=== PATIENT | male | born 1950 | race Caucasian/White ===

== ENCOUNTER 2017-01-19 16:56 | Observation (INO) | payer MEDICARE ==
[2017-01-19] MEDS ORDERED: Acetaminophen TAB* 325 MG PO ONE (17:28)
[2017-01-19] MEDS ORDERED: methylPREDNISolone 125 MG* 2 ML VIAL IV ONE (17:43)
[2017-01-19] MEDS ORDERED: Albuterol/Ipratropium NEB.SOL* Albuterol 2.5 MG/Ipratropium 0.5 MG 3 ML INH ONE (17:44)
[2017-01-19] MEDS ORDERED: Azithromycin IV(*) 500 MG in NS 0.9% 250 ML* 250 ML IVPB ONE (17:45)
[2017-01-19 17:55] LABS: Hematocrit 49 % (42-52); Hemoglobin 16.2 g/dl (14.0-18.0); Mean Corpuscular HGB Conc 33 g/dl (31-36); Mean Corpuscular Hemoglobin 28 pg (27-31); Mean Corpuscular Volume 84 fL (80-94); Mean Platelet Volume 9 um3 (7.4-10.4); Red Blood Count 5.88 10^6/ul (4.0-5.4); Red Cell Distribution Width 14 % (10.5-15); White Blood Count 19.6 10^3/ul (3.5-10.8)
[2017-01-19] MEDS: cefTRIAXone(*) 1 GM in NS 0.9% 50 ML* 50 ML IVPB ONE ×2 (18:04→21:01)
[2017-01-19] MEDS: NS 0.9% 1000 ML* 3,000 ML IV ONE ×2 (18:05→19:54)
[2017-01-19 18:14] LABS: Albumin 4.2 g/dL (3.2-5.2); BUN/Creatinine Ratio 17.6 (8-20); Calcium 9.2 mg/dL (8.6-10.3); EGFR African American 106.9 (>60); EGFR Non-African American 83.1 (>60); Globulin 3.5 g/dL (2-4); Total Bilirubin 0.7 mg/dL (0.2-1.0); Total Protein 7.7 g/dL (6.4-8.9)
[2017-01-19 18:16] LABS: Troponin I 0.01 ng/mL (<0.04)
[2017-01-19 18:24] LABS: C Reactive Protein 21.18 mg/L (< 5.00)
--- NOTE | 2017-01-19 18:36 | RAD ---
Indication: Cough, shortness of breath. Prior films are not available for review. 2 views of the chest including dual energy PA views demonstrates hyperinflated lung malone. No definite alveolar consolidation is noted. No pleural fluid is identified. IMPRESSION: Hyperinflated lung malone without evidence of active cardiopulmonary disease.
--- NOTE | 2017-01-19 19:02 | ED ---
Lisa Beckwith Matthew, scribed for Seymour Rodriguez MD on 01/19/17 at 1750 . Shortness of Breath - HPI Summary HPI Summary: A 66 y/o male presents to the ED with constant, gradually worsening SOB since today. The patient has a Hx of COPD. Associated symptoms include cough, fever - 103.7F, nasal congestion, and intermittent wheezing. The patient denies pedal edema, headache, and vomiting. The patient has not been on Abx, but was Dx with bronchitis a week ago. He was given a 5 day course of prednisone a week ago. The patient is not on home oxygen. His as been recent ill. He took an albuterol treatment at 16:00 with mild relief. The patient has weekly infusion of prolastin for alpha 1 antitrypsin deficiency today in [place]. The patient' s fever began have the infusion today. - History of Current Complaint Chief Complaint: EDShortnessOfBreath Time Seen by Provider: 01/19/17 17:24 Hx Obtained From: Patient Onset/Duration: Gradual Onset, Lasting Hours, Still Present Timing: Constant Current Severity: Moderate Dyspnea At: Rest Associated Signs & Symptoms: Cough (Productive), Wheezing, Fever, Nasal Congestion - Allergy/Home Medications Allergies/Adverse Reactions: Allergies Allergy/AdvReac Type Severity Reaction Status Date / Time No Known Allergies Allergy Verified 09/29/16 07:26 Home Medications: Home Medications Albuterol HFA INHALER* [Ventolin HFA Inhaler*] 2 puff INH Q6H PRN 01/19/17 [ History Confirmed 01/19/17] Aspirin EC Low Dose* [Ecotrin EC Low Dose*] 81 mg PO DAILY 01/19/17 [History Confirmed 01/19/17] Budesonide/Formote 160/4.5(NF) [Symbicort 160/4.5 (NF)] 2 puff INH BID 01/19/17 [History Confirmed 01/19/17] Multivitamins/Minerals TAB* [Theragran/minerals TAB*] 1 tab PO DAILY 01/19/17 [ History Confirmed 01/19/17] Pravastatin (NF) [Pravachol (NF)] 20 mg PO BEDTIME 01/19/17 [History Confirmed 01/19/17] Tiotropium CAP.INH* [Spiriva CAP.INH*] 1 cap.inh INH DAILY 01/19/17 [History Confirmed 01/19/17] predniSONE TAB* [Deltasone TAB*] 20 mg PO DAILY 01/19/17 [History Confirmed ] PMH/Surg Hx/FS Hx/Imm Hx Respiratory History: Reports: Hx Chronic Obstructive Pulmonary Disease (COPD) - Surgical History Surgery Procedure, Year, and Place: CAROTIDENDERECTOMY RIGHT SIDE. SINUS SURGERY - RIGHT EYE Infectious Disease History: No Infectious Disease History: Denies: History Other Infectious Disease, Traveled Outside the [place] in Last 30 Days - Family History Known Family History: Negative: Diabetes - Social History Alcohol Use: None Substance Use Type: Reports: None Smoking Status (MU): Former Smoker Review of Systems Positive: Fever Eyes: Negative Positive: Nasal Discharge Cardiovascular: Negative Respiratory: Other - Intermittent wheezing Positive: Cough Gastrointestinal: Negative Negative: Vomiting Genitourinary: Negative Musculoskeletal: Negative Skin: Negative Neurological: Negative Negative: Headache Psychological: Normal All Other Systems Reviewed And Are Negative: Yes Physical Exam - Summary Physical Exam Summary: The patient is in mild respiratory distress. The skin is warm and dry and skin color reflects adequate perfusion. HEENT: The head is normocephalic and atraumatic. The pupils are equal and reactive. The conjunctivae are clear and without drainage. Nares are patent and without drainage. Mouth reveals moist mucous membranes and the throat is without erythema and exudate. The external ears are intact. The ear canals are patent and without drainage. The tympanic membranes are intact. Neck is supple with full range of motion and non-tender. There are no carotid bruits. There is no neck vein distension. Respiratory: Chest is non-tender. The patient had diminished breath sounds, which is worse on the right. He also had occasional expiratory wheezing and retractions. Cardiovascular: Heart is regular rhythm and tachycardic. There is no murmur or rub auscultated. There is no peripheral edema and pulses are symmetrical and equal. Abdomen: The abdomen is soft and non-tender. There are normal bowel sounds heard in all four quadrants and there is no organomegaly palpated. Musculoskeletal: There is no back pain noted. Extremities are non-tender with full range of motion. There is good capillary refill. There is no peripheral edema or calf tenderness elicited. Neurological: Patient is alert and oriented to person, place and time. The patient has symmetrical motor strength in all four extremities. Cranial nerves are grossly intact. Deep tendon reflexes are symmetrical and equal in all four extremities. Psychiatric: The patient has an appropriate affect and does not exhibit any anxiety or depression. Triage Information Reviewed: Yes Vital Signs On Initial Exam: Initial Vitals Temp Pulse Resp BP Pulse Ox 103.7 F 139 28 183/86 90 01/19/17 16:57 01/19/17 16:57 01/19/17 16:57 01/19/17 16:57 01/19/17 16:57 Vital Signs Reviewed: Yes Diagnostics - Vital Signs Vital Signs Temp Pulse Resp BP Pulse Ox 01/19/17 16:57 103.7 F 139 28 183/86 90 - Laboratory Lab Results: Lab Results 01/19/17 01/19/17 01/19/17 Range/Units 17:40 17:40 17:40 WBC 19.6 H (3.5-10.8) 10^3/ul RBC 5.88 H (4.0-5.4) 10^6/ul Hgb 16.2 (14.0-18.0) g/dl Hct 49 (42-52) % MCV 84 (80-94) fL MCH 28 (27-31) pg MCHC 33 (31-36) g/dl RDW 14 (10.5-15) % Plt Count 211 (150-450) 10^3/ul MPV 9 (7.4-10.4) um3 Neut % (Auto) 92.5 H (38-83) % Lymph % (Auto) 2.8 L (25-47) % [place] % (Auto) 4.2 (1-9) % Eos % (Auto) 0.2 (0-6) % Baso % (Auto) 0.3 (0-2) % Absolute Neuts (auto) 18.1 H (1.5-7.7) 10^3/ul Absolute Lymphs (auto) 0.5 L (1.0-4.8) 10^3/ul Absolute Monos (auto) 0.8 (0-0.8) 10^3/ul Absolute Eos (auto) 0 (0-0.6) 10^3/ul Absolute Basos (auto) 0.1 (0-0.2) 10^3/ul Absolute Nucleated RBC 0 10^3/ul Nucleated RBC % 0 INR (Anticoag Therapy) 1.04 (0.89-1.11) APTT 27.1 (26.0-36.3) seconds Sodium 135 (133-145) mmol/L Potassium 4.0 (3.5-5.0) mmol/L Chloride 99 L (101-111) mmol/L Carbon Dioxide 27 (22-32) mmol/L Anion Gap 9 (2-11) mmol/L BUN 16 (6-24) mg/dL Creatinine 0.91 (0.67-1.17) mg/dL Est GFR ( Amer) 106.9 (>60) Est GFR (Non-Af Amer) 83.1 (>60) BUN/Creatinine Ratio 17.6 (8-20) Glucose 121 H (70-100) mg/dL Lactic Acid (0.5-2.0) mmol/L Calcium 9.2 (8.6-10.3) mg/dL Total Bilirubin 0.70 (0.2-1.0) mg/dL AST 21 (13-39) U/L ALT 10 (7-52) U/L Alkaline Phosphatase 73 (34-104) U/L Troponin I 0.01 (<0.04) ng/mL C-Reactive Protein 21.18 H (< 5.00) mg/L Total Protein 7.7 (6.4-8.9) g/dL Albumin 4.2 (3.2-5.2) g/dL Globulin 3.5 (2-4) g/dL Albumin/Globulin Ratio 1.2 (1-3) Influenza A (Rapid) (Negative) Influenza B (Rapid) (Negative) 01/19/17 01/19/17 Range/Units 17:40 17:52 WBC (3.5-10.8) 10^3/ul RBC (4.0-5.4) 10^6/ul Hgb (14.0-18.0) g/dl Hct (42-52) % MCV (80-94) fL MCH (27-31) pg MCHC (31-36) g/dl RDW (10.5-15) % Plt Count (150-450) 10^3/ul MPV (7.4-10.4) um3 Neut % (Auto) (38-83) % Lymph % (Auto) (25-47) % [place] % (Auto) (1-9) % Eos % (Auto) (0-6) % Baso % (Auto) (0-2) % Absolute Neuts (auto) (1.5-7.7) 10^3/ul Absolute Lymphs (auto) (1.0-4.8) 10^3/ul Absolute Monos (auto) (0-0.8) 10^3/ul Absolute Eos (auto) (0-0.6) 10^3/ul Absolute Basos (auto) (0-0.2) 10^3/ul Absolute Nucleated RBC 10^3/ul Nucleated RBC % INR (Anticoag Therapy) (0.89-1.11) APTT (26.0-36.3) seconds Sodium (133-145) mmol/L Potassium (3.5-5.0) mmol/L Chloride (101-111) mmol/L Carbon Dioxide (22-32) mmol/L Anion Gap (2-11) mmol/L BUN (6-24) mg/dL Creatinine (0.67-1.17) mg/dL Est GFR ( Amer) (>60) Est GFR (Non-Af Amer) (>60) BUN/Creatinine Ratio (8-20) Glucose (70-100) mg/dL Lactic Acid 1.1 (0.5-2.0) mmol/L Calcium (8.6-10.3) mg/dL Total Bilirubin (0.2-1.0) mg/dL AST (13-39) U/L ALT (7-52) U/L Alkaline Phosphatase (34-104) U/L Troponin I (<0.04) ng/mL C-Reactive Protein (< 5.00) mg/L Total Protein (6.4-8.9) g/dL Albumin (3.2-5.2) g/dL Globulin (2-4) g/dL Albumin/Globulin Ratio (1-3) Influenza A (Rapid) Negative (Negative) Influenza B (Rapid) Negative (Negative) Result Diagrams: 01/19/17 17:40 01/19/17 17:40 Lab Statement: Any lab studies that have been ordered have been reviewed, and results considered in the medical decision making process. - Radiology CXR Xray Interpretation: No Acute Changes - IMPRESSION: Hyperinflated lung malone without evidence of active cardiopulmonary disease. Radiology Interpretation Completed By: Radiologist - EKG 17:14 Cardiac Rate: Tachycardia - 133 bpm EKG Rhythm: Atrial Fibrillation EKG Interpretation: RBBB Course/Dx - Course Assessment/Plan: 66 y/o male presents to the ED with constant, gradually worsening SOB since today. Associated symptoms include cough, fever - 103.7F, nasal congestion, and intermittent wheezing. The patient denies pedal edema, headache, and vomiting. The patient has weekly infusion of prolastin for alpha 1 antitrypsin deficiency today in [place]. The patient's fever began have the infusion today. Labs were reviewed. CXR shows no active cardiopulmonary disease. EKG shows sinus tachycardia at 133 bpm w/ a RBBB. In the ED course, the patient was given Tylenol, Albuterol, 3L of fluids, ceftriaxone, Azithromycin, and methylprednisolone. Discussed the case with Dr. Bryson who will admit the patient into his services. - Diagnoses Differential Diagnosis/HQI/PQRI: Positive: Bronchitis, CHF, COPD Exacerbation, [place], Pneumonia, Other - influenza, adverse drug reaction to prolastin Provider Diagnoses: Fever, COPD exacerbation, Acute dyspnea - Physician Notifications Discussed Care of Patient With: Dr. Bryson (Hospitalist) at 18:43 -- Notified of patient's history and will admit the patient into his services. Discharge - Discharge Plan Condition: Stable Disposition: ADMITTED TO [facility] Referrals: Ellie Doty [Primary Care Provider] - The documentation as recorded by the Lisa cuba Matthew accurately reflects the service I personally performed and the decisions made by , Seymour Rodriguez MD.
--- NOTE | 2017-01-19 19:29 | HP ---
H&P (Free Text) History and Physical: PCP: Ny Doty @ [facility] Date/Time of Evaluation: 01/19/2017 1930 CC: fever, SOB HPI: Mr Arechiga is a 66YO male HX COPD & alpha-1 antitrypsin deficiency for which he receives Prolastin infusions at the [facility]. He reports onset of cough ~1month ago associated with malaise which has persisted and gradually worsened. Over the last 24 to 48 hours his SOB has worsened and he developed a fever at home up to 103F. He has a cough with scant sputum production and intermittent wheezing. He denies chest pain, palpitations, abdominal pain, or other issues. Reports influenza & pneumoccocal vacines are up-to-date. Evaluation reveals sinus tachycardia in the 130s, tachypnea in the low 30s, and leukocytosis of 19k 92% neutrophils. CXR is negative. PMedHx alpha-1 antitrypsin deficiency COPD carotid occlusive disease s/p R CEA HLD Allergies No Known Allergies Allergy (Verified 09/29/16 07:26) Ambulatory Orders Alpha 1 Antitrypsin Weekly Infusion 1 infus.set IV .ONCE WEEKLY TH09/29/16 Albuterol HFA INHALER* [Ventolin HFA Inhaler*] 2 puff INH Q6H PRN 01/19/17 Aspirin EC Low Dose* [Ecotrin EC Low Dose*] 81 mg PO DAILY 01/19/17 Budesonide/Formote 160/4.5(NF) [Symbicort 160/4.5 (NF)] 2 puff INH BID 01/19/17 Multivitamins/Minerals TAB* [Theragran/minerals TAB*] 1 tab PO DAILY 01/19/17 Pravastatin (NF) [Pravachol (NF)] 20 mg PO BEDTIME 01/19/17 Tiotropium CAP.INH* [Spiriva CAP.INH*] 1 cap.inh INH DAILY 01/19/17 predniSONE TAB* [Deltasone TAB*] 20 mg PO DAILY 01/19/17 PSurgHx R CEA R sinus surgery x2 for cyst excision SocHx: former smoker quit 9years ago w/ >40PYHX, denies significant alcohol or recreational drug HX; , lives with his ; worked as a search marketing coordinator; full code status FamHx: Father, Brother, & Sister: alpha-1 antitrypsin deficiency ROS: as above, otherwise reviewed and all were negative Constitutional: NAD, normally developed, overweight white male vitals: Vital Signs Temp 39.8 C 01/19/17 16:57 Pulse 136 01/19/17 19:00 Resp 33 01/19/17 19:00 BP 139/68 01/19/17 19:00 Pulse Ox 95 01/19/17 19:00 Intake & Output 01/18/17 01/19/17 01/19/17 23:59 11:59 23:59 Weight 78.018 kg HEENM: atraumatic; sclera/conjunctiva: non-icteric/clear; hearing: clinically intact; oropharynx: clear, mucosa moist Neck: soft tissue: no nuchal rigidity; thyroid: normal Pulmonary: scant end-inspiratory wheeze, marked expiratory > inspiratory time, poor aeration, no accessory muscle use CV: TR/TR, normal S1S2, no jugular venous distention, 2+ B DP/PT, no edema Abdominal: soft, non-distended, non-tender, no rebound/guarding/rigidity, normoactive bowel sounds, no hepatosplenomegaly or masses, no costovertebral angle tenderness Musculoskeletal: general: grossly intact; gait: stable Integumental: normal appearance and texture of exposed skin Psychiatric orientation: AA&O to PPS affect: calm mood: cooperative eye contact: good content: reliable responses: timely insight: fair to good Testing: Lab Results 01/19/17 01/19/17 01/19/17 Range/Units 17:40 17:40 17:40 WBC 19.6 H (3.5-10.8) 10^3/ul RBC 5.88 H (4.0-5.4) 10^6/ul Hgb 16.2 (14.0-18.0) g/dl Hct 49 (42-52) % MCV 84 (80-94) fL MCH 28 (27-31) pg MCHC 33 (31-36) g/dl RDW 14 (10.5-15) % Plt Count 211 (150-450) 10^3/ul MPV 9 (7.4-10.4) um3 Neut % (Auto) 92.5 H (38-83) % Lymph % (Auto) 2.8 L (25-47) % [place] % (Auto) 4.2 (1-9) % Eos % (Auto) 0.2 (0-6) % Baso % (Auto) 0.3 (0-2) % Absolute Neuts (auto) 18.1 H (1.5-7.7) 10^3/ul Absolute Lymphs (auto) 0.5 L (1.0-4.8) 10^3/ul Absolute Monos (auto) 0.8 (0-0.8) 10^3/ul Absolute Eos (auto) 0 (0-0.6) 10^3/ul Absolute Basos (auto) 0.1 (0-0.2) 10^3/ul Absolute Nucleated RBC 0 10^3/ul Nucleated RBC % 0 INR (Anticoag Therapy) 1.04 (0.89-1.11) APTT 27.1 (26.0-36.3) seconds Sodium 135 (133-145) mmol/L Potassium 4.0 (3.5-5.0) mmol/L Chloride 99 L (101-111) mmol/L Carbon Dioxide 27 (22-32) mmol/L Anion Gap 9 (2-11) mmol/L BUN 16 (6-24) mg/dL Creatinine 0.91 (0.67-1.17) mg/dL Est GFR ( Amer) 106.9 (>60) Est GFR (Non-Af Amer) 83.1 (>60) BUN/Creatinine Ratio 17.6 (8-20) Glucose 121 H (70-100) mg/dL Lactic Acid (0.5-2.0) mmol/L Calcium 9.2 (8.6-10.3) mg/dL Total Bilirubin 0.70 (0.2-1.0) mg/dL AST 21 (13-39) U/L ALT 10 (7-52) U/L Alkaline Phosphatase 73 (34-104) U/L Troponin I 0.01 (<0.04) ng/mL C-Reactive Protein 21.18 H (< 5.00) mg/L Total Protein 7.7 (6.4-8.9) g/dL Albumin 4.2 (3.2-5.2) g/dL Globulin 3.5 (2-4) g/dL Albumin/Globulin Ratio 1.2 (1-3) Influenza A (Rapid) (Negative) Influenza B (Rapid) (Negative) 01/19/17 01/19/17 Range/Units 17:40 17:52 WBC (3.5-10.8) 10^3/ul RBC (4.0-5.4) 10^6/ul Hgb (14.0-18.0) g/dl Hct (42-52) % MCV (80-94) fL MCH (27-31) pg MCHC (31-36) g/dl RDW (10.5-15) % Plt Count (150-450) 10^3/ul MPV (7.4-10.4) um3 Neut % (Auto) (38-83) % Lymph % (Auto) (25-47) % [place] % (Auto) (1-9) % Eos % (Auto) (0-6) % Baso % (Auto) (0-2) % Absolute Neuts (auto) (1.5-7.7) 10^3/ul Absolute Lymphs (auto) (1.0-4.8) 10^3/ul Absolute Monos (auto) (0-0.8) 10^3/ul Absolute Eos (auto) (0-0.6) 10^3/ul Absolute Basos (auto) (0-0.2) 10^3/ul Absolute Nucleated RBC 10^3/ul Nucleated RBC % INR (Anticoag Therapy) (0.89-1.11) APTT (26.0-36.3) seconds Sodium (133-145) mmol/L Potassium (3.5-5.0) mmol/L Chloride (101-111) mmol/L Carbon Dioxide (22-32) mmol/L Anion Gap (2-11) mmol/L BUN (6-24) mg/dL Creatinine (0.67-1.17) mg/dL Est GFR ( Amer) (>60) Est GFR (Non-Af Amer) (>60) BUN/Creatinine Ratio (8-20) Glucose (70-100) mg/dL Lactic Acid 1.1 (0.5-2.0) mmol/L Calcium (8.6-10.3) mg/dL Total Bilirubin (0.2-1.0) mg/dL AST (13-39) U/L ALT (7-52) U/L Alkaline Phosphatase (34-104) U/L Troponin I (<0.04) ng/mL C-Reactive Protein (< 5.00) mg/L Total Protein (6.4-8.9) g/dL Albumin (3.2-5.2) g/dL Globulin (2-4) g/dL Albumin/Globulin Ratio (1-3) Influenza A (Rapid) Negative (Negative) Influenza B (Rapid) Negative (Negative) ECG, personally reviewed: sinus tachycardia RBBB rate 130s, no ischemia CXR, personally reviewed: IMPRESSION: Hyperinflated lung malone without evidence of active cardiopulmonary disease. Impression: 66M HX alpha-1 antitrypsin deficiency and COPD presents with COPD exacerbation DIAGNOSIS & PLAN Primary SIRS 2nd COPD exacerbation vs sepsis 2nd unknown source : rapid influenza negative : albuterol nebs : mometasone/formoterol : tiotropium : IV methylprednisolone : IV azithromycin & ceftriaxone : guaifenesin : supplemental oxygen : blood & sputum CXs : supportive care Secondary HLD/carotid occlusive disease : remotely s/p R CEA : low fat diet Admission Rational: inpatient for SIRS 2nd COPD exacerbation DVTp: heparin SQ Code Status: full HCP:
[2017-01-19] MEDS ORDERED: Acetaminophen TAB* 325 MG PO PRN (20:31)
[2017-01-19] MEDS ORDERED: Albuterol 2.5 MG/3 ML NEB.SOL* (0.083%) INH PRN (20:31)
[2017-01-19] MEDS ORDERED: Melatonin (NF) 3 MG TAB PO PRN (20:31)
[2017-01-19] MEDS ORDERED: traMADol TAB* 50 MG PO PRN (20:32)
[2017-01-19] MEDS ORDERED: Ondansetron INJ* 2 MG/ML VIAL IV PRN (20:32)
[2017-01-19] MEDS ORDERED: NS 0.9% 1000 ML* 1,000 ML IV SCH (20:45)
[2017-01-19] MEDS ORDERED: cefTRIAXone VIAL(*) 1,000 MG in NS 0.9% 50 ML* 50 ML IVPB SCH (21:00)
[2017-01-19 21:23] LABS: Urine Bilirubin Negative (Negative); Urine Glucose Negative (Negative); Urine Nitrite Negative (Negative)
[2017-01-19] MEDS: guaiFENesin ER TAB 600 MG PO SCH (22:57)
[2017-01-20] MEDS: Albuterol 2.5 MG/3 ML NEB.SOL* (0.083%) INH SCH ×2 (01:36→07:38)
[2017-01-20] MEDS: Mometasone/Formoter 200/5 MDI INH SCH ×2 (02:09→07:39)
[2017-01-20] MEDS ORDERED: Omeprazole CAP* 20 MG PO SCH (06:00)
[2017-01-20] MEDS ORDERED: Heparin VIAL(*) 5000 UNITS/ML VIAL (FIVE THOUSAND) SUBCUT SCH (06:00)
[2017-01-20 06:25] LABS: Hematocrit 46 % (42-52); Hemoglobin 14.7 g/dl (14.0-18.0); Mean Corpuscular HGB Conc 32 g/dl (31-36); Mean Corpuscular Hemoglobin 28 pg (27-31); Mean Corpuscular Volume 86 fL (80-94); Mean Platelet Volume 9 um3 (7.4-10.4); Red Blood Count 5.34 10^6/ul (4.0-5.4); Red Cell Distribution Width 14 % (10.5-15); White Blood Count 19.8 10^3/ul (3.5-10.8)
[2017-01-20 06:43] LABS: BUN/Creatinine Ratio 18.4 (8-20); Calcium 8.4 mg/dL (8.6-10.3); EGFR African American 112.6 (>60); EGFR Non-African American 87.5 (>60); Potassium 4.4 mmol/L (3.5-5.0)
[2017-01-20] MEDS: guaiFENesin ER TAB 600 MG PO SCH (07:55)
[2017-01-20] MEDS ORDERED: Multivitamins/Minerals TAB PO SCH (09:00)
[2017-01-20] MEDS ORDERED: Aspirin EC Low Dose* 81 MG TAB.EC PO SCH (09:00)
[2017-01-20] MEDS ORDERED: Tiotropium CAP.INH* CAP.INH/18 MCG (USE ORDER SET !) INH SCH (09:00)
[2017-01-20] MEDS ORDERED: Spiriva Inhaler DEVICE* 1 EACH DEVICE INH ONE (09:00)
[2017-01-20] MEDS ORDERED: methylPREDNISolone SOD 40 MG* 1 ML VIAL IV SCH (09:00)
--- NOTE | 2017-01-20 13:17 | DCNOTE ---
Subjective Date of Service: 01/20/17 Interval History: Cough better, near baseline. Overall feels at or near baseline, anxious to go home. No new c/o. Objective Active Medications: Acetaminophen (Tylenol Tab*) 650 mg PO Q6H PRN PRN Reason: FEVER/PAIN Albuterol (Ventolin 2.5 Mg/3 Ml Neb.Tanya*) 2.5 mg INH Q2H PRN PRN Reason: SOB/WHEEZING Albuterol (Ventolin 2.5 Mg/3 Ml Neb.Tanya*) 2.5 mg INH [id number] AWAKE [facility] Last Admin: 01/20/17 07:38 Dose: 2.5 mg Aspirin (Aspirin Ec Low Dose*) 81 mg PO DAILY [facility] Last Admin: 01/20/17 07:55 Dose: 81 mg Guaifenesin (Mucinex*) 1,200 mg PO BID [facility] Last Admin: 01/20/17 07:55 Dose: 1,200 mg Heparin Sodium (Porcine) (Heparin Vial(*)) 5,000 units SUBCUT Q8HR [facility] Last Admin: 01/20/17 05:47 Dose: 5,000 units Ceftriaxone Sodium 1,000 mg/ (Sodium Chloride) 50 mls @ 200 mls/hr IVPB Q24H [facility] Last Admin: 01/19/17 22:55 Dose: 200 mls/hr Azithromycin 500 mg/ Sodium (Chloride) 250 mls @ 250 mls/hr IVPB Q24H [facility] Melatonin (Melatonin (Nf)) 3 mg PO BEDTIME PRN; Protocol PRN Reason: Sleep Methylprednisolone Sodium Succinate (Solu-Medrol*) 40 mg IV Q8H [facility] Last Admin: 01/20/17 07:55 Dose: 40 mg Mometasone Furoate/Formoterol Fumar (Dulera 200/5 Mdi*) 2 puff INH BID [facility] Last Admin: 01/20/17 07:39 Dose: 2 puff Multivitamins/Minerals (Theragran/Minerals Tab*) 1 tab PO DAILY [facility] Last Admin: 01/20/17 07:55 Dose: 1 tab Omeprazole (Prilosec Cap*) 20 mg PO DAILY@0600 [facility] Last Admin: 01/20/17 05:48 Dose: 20 mg Ondansetron HCl (Zofran Inj*) 4 mg IV Q6H PRN PRN Reason: NAUSEA Tiotropium Edgar (Spiriva Cap.Inh*) 1 cap INH DAILY [facility] Last Admin: 01/20/17 07:38 Dose: 1 cap Tramadol HCl (Ultram*) 50 mg PO Q6H PRN PRN Reason: PAIN Vital Signs 01/19/17 01/19/17 01/19/17 20:00 20:30 21:00 Temperature 98.8 F Pulse Rate 133 118 108 Respiratory 24 28 28 Rate Blood Pressure 141/70 129/69 121/57 (mmHg) O2 Sat by Pulse 96 96 95 Oximetry 01/19/17 01/19/17 01/19/17 21:30 22:10 23:00 Temperature 97.8 F Pulse Rate 102 111 Respiratory 27 20 18 Rate Blood Pressure 116/73 156/69 (mmHg) O2 Sat by Pulse 95 95 Oximetry 01/20/17 01/20/17 01/20/17 00:12 02:10 04:14 Temperature 97.9 F 97.3 F Pulse Rate 91 88 Respiratory 16 16 Rate Blood Pressure 138/64 138/73 (mmHg) O2 Sat by Pulse 100 95 100 Oximetry 01/20/17 01/20/17 01/20/17 07:24 07:43 08:00 Temperature 97.7 F Pulse Rate 100 92 Respiratory 20 20 20 Rate Blood Pressure 147/75 (mmHg) O2 Sat by Pulse 99 98 Oximetry 01/20/17 08:17 Temperature Pulse Rate Respiratory Rate Blood Pressure (mmHg) O2 Sat by Pulse 98 Oximetry Oxygen Devices in Use Now: None Appearance: Alert, sitting on the edge of his bed. In good spirits. Looks comfortable. Eyes: No Scleral Icterus Ears/Nose/Mouth/Throat: Clear Oropharnyx, Mucous Membranes Moist Neck: NL Appearance and Movements; NL JVP, No Thyroid Enlargement, Masses Respiratory: Symmetrical Chest Expansion and Respiratory Effort, Clear to Auscultation, Clear to Percussion Cardiovascular: NL Sounds; No Murmurs; No JVD, RRR, No Edema, - Abdominal: NL Sounds; No Tenderness; No Distention, No Hepatosplenomegaly, - Extremities: No Edema, No Clubbing, Cyanosis, - Skin: No Rash or Ulcers, No Nodules or Sclerosis, - Neurological: Alert and Oriented x 3, NL Sensation Result Diagrams: 01/20/17 05:57 01/20/17 05:57 Additional Lab and Data: Lab Results 01/19/17 01/19/17 01/19/17 Range/Units 17:40 17:40 17:40 WBC 19.6 H (3.5-10.8) 10^3/ul RBC 5.88 H (4.0-5.4) 10^6/ul Hgb 16.2 (14.0-18.0) g/dl Hct 49 (42-52) % MCV 84 (80-94) fL MCH 28 (27-31) pg MCHC 33 (31-36) g/dl RDW 14 (10.5-15) % Plt Count 211 (150-450) 10^3/ul MPV 9 (7.4-10.4) um3 Neut % (Auto) 92.5 H (38-83) % Lymph % (Auto) 2.8 L (25-47) % [place] % (Auto) 4.2 (1-9) % Eos % (Auto) 0.2 (0-6) % Baso % (Auto) 0.3 (0-2) % Absolute Neuts (auto) 18.1 H (1.5-7.7) 10^3/ul Absolute Lymphs (auto) 0.5 L (1.0-4.8) 10^3/ul Absolute Monos (auto) 0.8 (0-0.8) 10^3/ul Absolute Eos (auto) 0 (0-0.6) 10^3/ul Absolute Basos (auto) 0.1 (0-0.2) 10^3/ul Absolute Nucleated RBC 0 10^3/ul Nucleated RBC % 0 INR (Anticoag Therapy) 1.04 (0.89-1.11) APTT 27.1 (26.0-36.3) seconds Sodium 135 (133-145) mmol/L Potassium 4.0 (3.5-5.0) mmol/L Chloride 99 L (101-111) mmol/L Carbon Dioxide 27 (22-32) mmol/L Anion Gap 9 (2-11) mmol/L BUN 16 (6-24) mg/dL Creatinine 0.91 (0.67-1.17) mg/dL Est GFR ( Amer) 106.9 (>60) Est GFR (Non-Af Amer) 83.1 (>60) BUN/Creatinine Ratio 17.6 (8-20) Glucose 121 H (70-100) mg/dL Lactic Acid (0.5-2.0) mmol/L Calcium 9.2 (8.6-10.3) mg/dL Total Bilirubin 0.70 (0.2-1.0) mg/dL AST 21 (13-39) U/L ALT 10 (7-52) U/L Alkaline Phosphatase 73 (34-104) U/L Troponin I 0.01 (<0.04) ng/mL C-Reactive Protein 21.18 H (< 5.00) mg/L Total Protein 7.7 (6.4-8.9) g/dL Albumin 4.2 (3.2-5.2) g/dL Globulin 3.5 (2-4) g/dL Albumin/Globulin Ratio 1.2 (1-3) Influenza A (Rapid) (Negative) Influenza B (Rapid) (Negative) 01/19/17 01/19/17 Range/Units 17:40 17:52 WBC (3.5-10.8) 10^3/ul RBC (4.0-5.4) 10^6/ul Hgb (14.0-18.0) g/dl Hct (42-52) % MCV (80-94) fL MCH (27-31) pg MCHC (31-36) g/dl RDW (10.5-15) % Plt Count (150-450) 10^3/ul MPV (7.4-10.4) um3 Neut % (Auto) (38-83) % Lymph % (Auto) (25-47) % [place] % (Auto) (1-9) % Eos % (Auto) (0-6) % Baso % (Auto) (0-2) % Absolute Neuts (auto) (1.5-7.7) 10^3/ul Absolute Lymphs (auto) (1.0-4.8) 10^3/ul Absolute Monos (auto) (0-0.8) 10^3/ul Absolute Eos (auto) (0-0.6) 10^3/ul Absolute Basos (auto) (0-0.2) 10^3/ul Absolute Nucleated RBC 10^3/ul Nucleated RBC % INR (Anticoag Therapy) (0.89-1.11) APTT (26.0-36.3) seconds Sodium (133-145) mmol/L Potassium (3.5-5.0) mmol/L Chloride (101-111) mmol/L Carbon Dioxide (22-32) mmol/L Anion Gap (2-11) mmol/L BUN (6-24) mg/dL Creatinine (0.67-1.17) mg/dL Est GFR ( Amer) (>60) Est GFR (Non-Af Amer) (>60) BUN/Creatinine Ratio (8-20) Glucose (70-100) mg/dL Lactic Acid 1.1 (0.5-2.0) mmol/L Calcium (8.6-10.3) mg/dL Total Bilirubin (0.2-1.0) mg/dL AST (13-39) U/L ALT (7-52) U/L Alkaline Phosphatase (34-104) U/L Troponin I (<0.04) ng/mL C-Reactive Protein (< 5.00) mg/L Total Protein (6.4-8.9) g/dL Albumin (3.2-5.2) g/dL Globulin (2-4) g/dL Albumin/Globulin Ratio (1-3) Influenza A (Rapid) Negative (Negative) Influenza B (Rapid) Negative (Negative) Assess/Plan/Problems-Billing Assessment: - Patient Problems (1) COPD exacerbation Current Visit: Yes Status: Acute Code(s): J44.1 - CHRONIC OBSTRUCTIVE PULMONARY DISEASE W (ACUTE) EXACERBATION SNOMED Code(s): 816361781 Comment: 8 days cefuroxime., 4 days azithromycin as outpt. Prednisone taper , has 10 10 mg tabs at home. (2) Vkafp-[id number] deficiency Current Visit: Yes Status: Acute Code(s): E88.01 - [id number] DEFICIENCY SNOMED Code(s): 24738206 Comment: Continue weekly infusions at home. (3) Carotid stenosis Current Visit: Yes Status: Acute Code(s): I65.29 - OCCLUSION AND STENOSIS OF UNSPECIFIED CAROTID ARTERY SNOMED Code(s): 78120312 Comment: s/p R CEA. Continue pravastatin at home. Status and Disposition: Discharge now. [facility].
[2017-01-20 13:30] VITALS: BP 143/69
[2017-01-20] MEDS ORDERED: Azithromycin IV(*) 500 MG in NS 0.9% 250 ML* 250 ML IVPB SCH (18:00)
--- NOTE | 2017-01-20 21:41 | DS ---
DISCHARGE SUMMARY: DATE OF ADMISSION: DATE OF DISCHARGE: 01/20/17 HISTORY: This 66-year-old man came with complaints of fever and shortness of breath. The history i s detailed in the dictated admission note. Of note, he has alpha-1 antitrypsin deficiency. He has three first-degree family members with the same diagnosis. He gets weekly infusions of alpha-1 anti trypsin at the [facility] in [place]. The patient was admitted and started on ceftriaxone and azithromycin. His temperature was 103.7 the first hospital day, but was below 99 thereafter. He felt much better the following hospital day. His chest x-ray done on admission showed hyperinflated lung malone without evidence of active cardio pulmonary disease. He will complete seven more days of cefuroxime and four more days of azithromycin as an outpatient. FINAL DIAGNOSES: 1. Chronic obstructive pulmonary disease exacerbation. 2. Alpha-1 antitrypsin deficiency. 3. Carotid stenosis, status post endarterectomy. DISCHARGE MEDICATIONS: 1. Prednisone 10 mg daily, taper from 4 to 0 over 4 days. 2. Ceftriaxone 500 mg b.i.d. x8 days. 3. Azithromycin 250 mg daily x4 days. 4. Alpha-1 antitrypsin weekly infusion. 5. Multivitamin with minerals daily. 6. Aspirin 81 mg daily. 7. Tiotropium 1 capsule daily. 8. Pravastatin 20 mg h.s. 9. Budesonide/formoterol 160/4.5 two puffs b.i.d. 10. Albuterol inhaler 2 puffs every 6 hours p.r.n. [id number]/[facility] #: [id number]
== END 2017-01-20 14:02 | disposition home or self-care (01) ==
LOC: ED 16:56 → MEDTELE 19:30 → INTOOBSV 19:30
PROVIDERS: ADMIT Hospitalist; ATTEND Internal Medicine
DX: J44.1 Chronic obstructive pulmonary disease with (acute) exacerbation (principal); E88.01 Alpha-1-antitrypsin deficiency; Z79.82 Long term (current) use of aspirin; Z87.891 Personal history of nicotine dependence; E78.5 Hyperlipidemia, unspecified; I45.10 Unspecified right bundle-branch block; I48.91 Unspecified atrial fibrillation; Z83.49 Family history of other endocrine, nutritional and metabolic diseases
CPT/HCPCS: 36415; 71020; 80048; 80053; 81003; 83605; 84484; 85025; 85610; 85730; 86140; 87040; 87502; 93005; 94640; 94760; 96365; 99285; A9270-GY; G0378; J0456; J0696; J1644; J2920; J2930

== ENCOUNTER 2017-06-17 20:18 | Observation (INO) | payer MEDICARE ==
[2017-06-17] MEDS ORDERED: NS 0.9% 1000 ML* 1,000 ML IV ONE (20:36)
[2017-06-17] MEDS ORDERED: methylPREDNISolone 125 MG* 2 ML VIAL IV ONE (20:36)
[2017-06-17] MEDS ORDERED: Albuterol/Ipratropium NEB.SOL* Albuterol 2.5 MG/Ipratropium 0.5 MG 3 ML INH ONE (20:36)
--- NOTE | 2017-06-17 21:02 | ED ---
Omar Beckwith Benjamin, scribed for Deric Crawford MD on 06/17/17 at 2040 . Shortness of Breath - HPI Summary HPI Summary: 67yo male c/o being increasingly SOB the in the past few days. Pt has hx of COPD and has chronic cough but pt states that his cough has increased in frequency and severity compared to baseline. Pt is not on any oxygen treatment at home. Pt usually have productive cough with white milky phlegm, but states that today has coughed up brown phlegm. Temp of 100F tonight. - History of Current Complaint Chief Complaint: EDShortnessOfBreath Time Seen by Provider: 06/17/17 20:31 Hx Obtained From: Patient, Family/Radioisotope Technologist - Onset/Duration: Gradual Onset, Lasting Days, Still Present, Worse Since - worsening cough and SOB Current Severity: Moderate Dyspnea At: Rest Aggrevating Factors: Nothing Alleviating Factors: Nothing Associated Signs & Symptoms: Cough (Nonproductive) - brown phlegm, Fever - 100F - Allergy/Home Medications Allergies/Adverse Reactions: Allergies Allergy/AdvReac Type Severity Reaction Status Date / Time Pravastatin AdvReac Muscle Ache Verified 06/17/17 21:03 Home Medications: Home Medications Lisinopril [Zestril 5 MG-] 5 mg PO DAILY 06/17/17 [History Confirmed 06/17/17] PMH/Surg Hx/FS Hx/Imm Hx Respiratory History: Reports: Hx Chronic Obstructive Pulmonary Disease (COPD) - Surgical History Surgery Procedure, Year, and Place: CAROTIDENDERECTOMY RIGHT SIDE. SINUS SURGERY - RIGHT EYE Infectious Disease History: Denies: History Other Infectious Disease, Traveled Outside the [place] in Last 30 Days - Family History Known Family History: Positive: Hypertension Negative: Diabetes - Social History Occupation: Retired Lives: With Family Alcohol Use: None Substance Use Type: Reports: None Smoking Status (MU): Former Smoker Review of Systems Positive: Fever - 100F Eyes: Negative ENT: Negative Cardiovascular: Negative Positive: Shortness Of Breath, Cough - with brown phlegm Gastrointestinal: Negative Genitourinary: Negative Musculoskeletal: Negative Skin: Negative Neurological: Negative Psychological: Normal All Other Systems Reviewed And Are Negative: Yes Physical Exam Triage Information Reviewed: Yes Vital Signs On Initial Exam: Initial Vitals Temp Pulse Resp BP Pulse Ox 100 F 125 26 145/65 85 06/17/17 20:21 06/17/17 20:21 06/17/17 20:21 06/17/17 20:21 06/17/17 20:21 Vital Signs Reviewed: Yes Appearance: Positive: No Pain Distress, Ill-Appearing Skin: Positive: Warm Head/Face: Positive: Normal Head/Face Inspection Eyes: Positive: PARISH ENT: Positive: Hearing grossly normal Neck: Positive: Supple, Nontender Respiratory/Lung Sounds: Positive: Decreased Breath Sounds, Wheezes - scattered bilat exp Cardiovascular: Positive: Tachycardia Abdomen Description: Positive: Nontender, Soft Bowel Sounds: Positive: Present Musculoskeletal: Positive: Strength/ROM Intact Neurological: Positive: Alert, Oriented to Person Place, Time Psychiatric: Positive: Affect/Mood Appropriate Diagnostics - Vital Signs Vital Signs Temp Pulse Resp BP Pulse Ox 06/17/17 20:21 100 F 125 26 145/65 85 - Laboratory Result Diagrams: 06/18/17 05:17 06/17/17 21:00 Lab Statement: Any lab studies that have been ordered have been reviewed, and results considered in the medical decision making process. - Radiology CXR Xray Interpretation: No Acute Changes - COPD, NAD. Radiology Interpretation Completed By: Radiologist - EKG 2149. Cardiac Rate: Tachycardia - 113bpm EKG Rhythm: Sinus Tachycardia EKG Interpretation: RBBB Re-Evaluation - Re-Evaluation First Eval Comment: mildly improved, still sig sob, d/w hospitalist Course/Dx - Course Course Of Treatment: Discussed with Dr. Corona (Hospitalist) at 21:57. - Diagnoses Provider Diagnoses: COPD exacerbation - Physician Notifications Instructed by Provider To: Admit As Inpatient Discharge - Discharge Plan Condition: Fair Disposition: ADMITTED TO [facility] documentation as recorded by the Omar cuba Benjamin accurately reflects the service I personally performed and the decisions made by me, Deric Crawford MD.
[2017-06-17 21:12] LABS: Hematocrit 45 % (42-52); Hemoglobin 14.4 g/dl (14.0-18.0); Mean Corpuscular HGB Conc 32 g/dl (31-36); Mean Corpuscular Hemoglobin 28 pg (27-31); Mean Corpuscular Volume 87 fL (80-94); Mean Platelet Volume 9 um3 (7.4-10.4); Red Blood Count 5.19 10^6/ul (4.0-5.4); Red Cell Distribution Width 14 % (10.5-15); White Blood Count 19.6 10^3/ul (3.5-10.8)
[2017-06-17 21:16] LABS: Add Diff/Slide Review? Slide Review Added; Comments Flag Yes
[2017-06-17 21:26] LABS: Albumin 3.8 g/dL (3.2-5.2); BUN/Creatinine Ratio 19.8 (8-20); EGFR African American 106.6 (>60); EGFR Non-African American 82.9 (>60); Globulin 3.4 g/dL (2-4); Potassium 4.3 mmol/L (3.5-5.0); Total Bilirubin 0.7 mg/dL (0.2-1.0); Total Protein 7.2 g/dL (6.4-8.9)
--- NOTE | 2017-06-17 21:39 | RAD ---
INDICATION: Cough and shortness of breath. COMPARISON: Comparison is made with a prior study from January 19, 2017. TECHNIQUE: Dual-energy PA and lateral views of the chest were obtained. FINDINGS: The heart is within normal limits in size. Mediastinal and hilar contours appear within normal limits. There is mild prominence of the interstitial markings which is unchanged from the prior exam. No significant focal infiltrate or pleural effusion is seen. There is flattening of the diaphragms suggestive of chronic obstructive pulmonary disease. IMPRESSION: FINDINGS SUGGESTIVE OF COPD, NO EVIDENCE FOR ACUTE FINDING.
[2017-06-17] MEDS ORDERED: Acetaminophen TAB* 325 MG PO PRN (22:00)
[2017-06-17] MEDS ORDERED: Albuterol 2.5 MG/3 ML NEB.SOL* (0.083%) INH PRN (22:00)
[2017-06-17] MEDS ORDERED: CMCS: Melatonin (NF) 3 MG TAB PO PRN (22:00)
[2017-06-17] MEDS ORDERED: Ondansetron INJ* 2 MG/ML VIAL IV PRN (22:01)
[2017-06-17] MEDS ORDERED: Morphine INJ* 2 MG/ML 1 ML SYRINGE IV PRN (22:01)
--- NOTE | 2017-06-17 22:09 | HP ---
H&P (Free Text) History and Physical: PCP: Ny Doty @ [facility] Date/Time of Evaluation: 06/17/2017 [id number] CC: SOB HPI: Mr Arechiga is a 66YO male HX COPD & alpha-1 antitrypsin deficiency for which he receives Prolastin infusions at the [facility]. He reports 2-3 days of increasing cough and SOB associated with a change in sputum from clear/white to brownish and the addition of subjective F/C and light sweats today. He denies chest pain, N/V, palpitations, or other issues. He was seen at the [facility] ~ 1month ago and diagnosed with a COPD exacerbation successfully managed outpatient. He denies sick contacts. PMedHx alpha-1 antitrypsin deficiency COPD PAOD s/p R carotid endarterectomy HLD Ambulatory Orders Alpha 1 Antitrypsin Weekly Infusion 1 infus.set IV .ONCE WEEKLY 09/29/16 Albuterol HFA INHALER* [Ventolin HFA Inhaler*] 2 puff INH Q6H PRN 01/19/17 Aspirin EC Low Dose* [Ecotrin EC Low Dose 81 MG*] 81 mg PO DAILY 01/19/17 Budesonide/Formote 160/4.5(NF) [Symbicort 160/4.5 (NF)] 2 puff INH BID 01/19/17 Multivitamins/Minerals TAB* [Theragran/minerals TAB*] 1 tab PO DAILY 01/19/17 Tiotropium CAP.INH* [Spiriva CAP.INH*] 1 cap.inh INH DAILY 01/19/17 Lisinopril [Zestril 5 MG-] 5 mg PO DAILY 06/17/17 Allergies Pravastatin Adverse Reaction (Verified 06/17/17 21:03) Muscle Ache PSurgHx R CEA R sinus surgery x2 for cyst excision SocHx: former smoker quit ~9years ago w/ >40PYHX, denies significant alcohol or recreational drug HX; , lives with his ; worked as a staff nurse anesthetist; full code status FamHx: Father, Brother, & Sister: alpha-1 antitrypsin deficiency ROS: as above, otherwise reviewed and all were negative Constitutional: NAD, normally developed, overweight white male vitals: Vital Signs Temp 37.7 C 06/17/17 21:08 Pulse 119 06/17/17 21:08 Resp 25 06/17/17 21:13 BP 169/79 06/17/17 21:08 Pulse Ox 97 06/17/17 21:08 Intake & Output 06/16/17 06/17/17 06/17/17 23:59 11:59 23:59 Weight 72.575 kg HEENM: atraumatic; sclera/conjunctiva: non-icteric/clear; hearing: clinically intact; oropharynx: clear, mucosa moist Neck: soft tissue: no nuchal rigidity; thyroid: normal Pulmonary: mild mid- to end-expiratory wheeze & prolonged expiratory phase, fair aeration, no accessory muscle use CV: TR/TR, normal S1S2, no jugular venous distention, 2+ B DP/PT, no edema Abdominal: soft, non-distended, non-tender, no rebound/guarding/rigidity, normoactive bowel sounds, no hepatosplenomegaly or masses, no costovertebral angle tenderness Musculoskeletal: general: grossly intact; gait: stable Integumental: normal appearance and texture of exposed skin Psychiatric orientation: AA&O to PPS affect: calm mood: pleasant eye contact: good content: reliable responses: timely insight: fair to good Testing: Lab Results 06/17/17 06/17/17 06/17/17 Range/Units 21:00 21:00 21:00 WBC 19.6 H (3.5-10.8) 10^3/ul RBC 5.19 (4.0-5.4) 10^6/ul Hgb 14.4 (14.0-18.0) g/dl Hct 45 (42-52) % MCV 87 (80-94) fL MCH 28 (27-31) pg MCHC 32 (31-36) g/dl RDW 14 (10.5-15) % Plt Count 251 (150-450) 10^3/ul MPV 9 (7.4-10.4) um3 Neut % (Auto) 87.7 H (38-83) % Lymph % (Auto) 3.7 L (25-47) % [place] % (Auto) 7.7 (1-9) % Eos % (Auto) 0.1 (0-6) % Baso % (Auto) 0.8 (0-2) % Absolute Neuts (auto) 17.2 H (1.5-7.7) 10^3/ul Absolute Lymphs (auto) 0.7 L (1.0-4.8) 10^3/ul Absolute Monos (auto) 1.5 H (0-0.8) 10^3/ul Absolute Eos (auto) 0 (0-0.6) 10^3/ul Absolute Basos (auto) 0.2 (0-0.2) 10^3/ul Absolute Nucleated RBC 0.02 10^3/ul Nucleated RBC % 0.1 Sodium 134 (133-145) mmol/L Potassium 4.3 (3.5-5.0) mmol/L Chloride 98 L (101-111) mmol/L Carbon Dioxide 27 (22-32) mmol/L Anion Gap 9 (2-11) mmol/L BUN 18 (6-24) mg/dL Creatinine 0.91 (0.67-1.17) mg/dL Est GFR ( Amer) 106.6 (>60) Est GFR (Non-Af Amer) 82.9 (>60) BUN/Creatinine Ratio 19.8 (8-20) Glucose 122 H (70-100) mg/dL Lactic Acid 1.0 (0.5-2.0) mmol/L Calcium 9.0 (8.6-10.3) mg/dL Total Bilirubin 0.70 (0.2-1.0) mg/dL AST 15 (13-39) U/L ALT 6 L (7-52) U/L Alkaline Phosphatase 90 (34-104) U/L Total Protein 7.2 (6.4-8.9) g/dL Albumin 3.8 (3.2-5.2) g/dL Globulin 3.4 (2-4) g/dL Albumin/Globulin Ratio 1.1 (1-3) ECG, personally reviewed: sinus RBBB rate 103, no ischemia CXR, personally reviewed: sinus RBBB rate 113, no ischemia Impression: 66M HX alpha-1 antitrypsin deficiency & COPD presents w/ COPD exacerbation DIAGNOSIS & PLAN Primary SIRS 2nd COPD exacerbation : albuterol nebs : mometasone/formoterol : tiotropium : IV methylprednisolone : IV azithromycin & ceftriaxone : guaifenesin : blood & sputum CXs : incentive spirometry : supplemental oxygen : supportive care elevated troponin, suspect demand ischemia : telemetry, troponin : aspirin Secondary HLD/PAOD : remotely s/p R CEA : heart healthy diet Admission Rational: inpatient for SIRS 2nd COPD exacerbation & elevated troponin DVTp: heparin SQ Code Status: full HCP:
[2017-06-17] MEDS ORDERED: NS 0.9% 1000 ML* 1,000 ML IV SCH (22:15)
[2017-06-17 22:38] LABS: Troponin I 0.04 ng/mL (<0.04)
[2017-06-18] MEDS ORDERED: cefTRIAXone VIAL(*) 1,000 MG in NS 0.9% 50 ML* 50 ML IVPB SCH (00:15)
[2017-06-18] MEDS ORDERED: Azithromycin IV(*) 500 MG in NS 0.9% 250 ML* 250 ML IVPB SCH (00:30)
[2017-06-18] MEDS: Albuterol 2.5 MG/3 ML NEB.SOL* (0.083%) INH SCH ×2 (00:31→09:08)
[2017-06-18] MEDS ORDERED: methylPREDNISolone SOD 40 MG* 1 ML VIAL IV SCH (04:00)
[2017-06-18 05:31] LABS: Hematocrit 43 % (42-52); Hemoglobin 13.7 g/dl (14.0-18.0); Mean Corpuscular HGB Conc 32 g/dl (31-36); Mean Corpuscular Hemoglobin 28 pg (27-31); Mean Corpuscular Volume 88 fL (80-94); Mean Platelet Volume 9 um3 (7.4-10.4); Red Blood Count 4.87 10^6/ul (4.0-5.4); Red Cell Distribution Width 14 % (10.5-15); White Blood Count 12.7 10^3/ul (3.5-10.8)
[2017-06-18] MEDS ORDERED: Heparin VIAL(*) 5000 UNITS/ML VIAL (FIVE THOUSAND) SUBCUT SCH (06:00)
[2017-06-18] MEDS ORDERED: Omeprazole CAP* 20 MG PO SCH (06:00)
[2017-06-18 08:19] VITALS: BP 137/67
[2017-06-18] MEDS ORDERED: Docusate CAP* 100 MG PO SCH (09:00)
[2017-06-18] MEDS ORDERED: Aspirin EC Low Dose* 81 MG TAB.EC PO SCH (09:00)
[2017-06-18] MEDS ORDERED: Spiriva Inhaler DEVICE* 1 EACH DEVICE INH ONE (09:00)
[2017-06-18] MEDS ORDERED: guaiFENesin ER TAB 600 MG PO SCH (09:00)
[2017-06-18] MEDS ORDERED: Tiotropium CAP.INH* CAP.INH/18 MCG INH SCH (09:00)
[2017-06-18] MEDS ORDERED: Mometasone/Formoter 200/5 MDI INH SCH (09:00)
--- NOTE | 2017-06-19 07:02 | DS ---
DISCHARGE SUMMARY: DATE OF ADMISSION: 06/17/17 DATE OF DISCHARGE: 06/18/17 HISTORY: This 67-year-old man presented with COPD exacerbation, he had had increased cough with yellow sputum for about a day. He was little more short of breath. I noted he has alpha-1 antitrypsin deficiency and gets antitrypsin infusions every week at the [facility]. He does not use home oxygen. He has been rather stable, other than these occasional exacerbations. His came with him and was present when I discharged the patient, she has not been ill. The patient received ceftriaxone, methylprednisolone, and azithromycin. He was much better the next day, pretty much at his baseline. He had a small amount of sputum, which was stewarding supervisor in color. He had a little bit of chest pain with coughing. He had had no chills or sweats. Of note, his temperature was exactly 100 the first three measurements and was under 98 the last three measurements in the hospital. His white count was 19.6 and came down to 12.7 the next day. This was similar to his white count when he had an exacerbation in December of this year. He has had a number of exacerbations, some treated as an outpatient. The patient's pulmonary exam was essentially negative on the day of discharge. He was breathing comfortably on room air and, by his own account, was pretty much at his baseline. FINAL DIAGNOSES: 1. Chronic obstructive pulmonary disease exacerbation. 2. Alpha-1 antitrypsin disease. 3. Peripheral arterial disease, status post carotid endarterectomy. 4. Hyperlipidemia. DISCHARGE MEDICATIONS: 1. Azithromycin 250 mg daily for 4 days. 2. Cefuroxime 500 mg b.i.d. for 7 days. 3. Prednisone 10 mg, to taper from 60 over 6 days. 4. Alpha-1 antitrypsin infusion weekly. 5. Multivitamin with minerals daily. 6. Enteric-coated aspirin 81 mg daily. 7. Tiotropium 1 capsule daily. 8. Budesonide/formoterol 160/4.5 two puffs b.i.d. 9. Albuterol inhaler 2 puffs every 6 hours p.r.n. 10. Lisinopril 5 mg daily. [id number]/[facility] #: [id number] [facility]
[2017-06-19] MEDS ORDERED: Azithromycin TAB* 250 MG PO SCH (09:00)
== END 2017-06-18 11:59 | disposition home or self-care (01) ==
LOC: ED 20:18 → MED 21:55 → INTOOBSV 21:55 → UNDOADMIN 21:55 → MEDTELE 06-18 00:03
PROVIDERS: ADMIT Hospitalist; ATTEND Internal Medicine
DX: J44.9 Chronic obstructive pulmonary disease, unspecified (principal); E88.01 Alpha-1-antitrypsin deficiency; I73.9 Peripheral vascular disease, unspecified
CPT/HCPCS: 36415; 71020; 80053; 83605; 84484; 85025; 87070; 87205; 93005; 94640; 94760; 96374; 99283; A9270-GY; G0378; J0456; J0696; J1644; J2920; J2930

== ENCOUNTER 2018-06-25 12:36 | Emergency (ER) | payer MEDICARE ==
--- NOTE | 2018-06-25 12:56 | ED ---
Shortness of Breath - HPI Summary HPI Summary: This is rosa elena Watters documenting for attending Rm Worley MD. Patient is a 68 y/o M w/ c/o SOB since this morning. Patient has Hx of COPD but notes exacerbation of SOB this morning. He reports nausea, vomiting this morning and having a productive cough which brings up clear mucous. He denies chest pain but reports ROSA and slight neck stiffness. Patient reports chills yesterday and possible fever today. He is on 3 L O2 at home. On triage, pain is denied but it is also noted that exertion and lying flat worsens SOB. Nothing is noted to alleviate Sx on triage. Allergies and home medications are reviewed. - History of Current Complaint Chief Complaint: EDShortnessOfBreath Hx Obtained From: Patient Onset/Duration: Sudden Onset, Lasting Hours - onset this morning, does not specify time Current Severity: None - pain denied on triage Aggrevating Factors: Movement, Other - lying flat Alleviating Factors: Nothing Associated Signs & Symptoms: Cough (Productive) - clear mucous, Fever, Chills - Allergy/Home Medications Allergies/Adverse Reactions: Allergies Allergy/AdvReac Type Severity Reaction Status Date / Time pravastatin Allergy Muscle Ache Verified 06/25/18 16:28 Home Medications: Home Medications [id number] Inhibitor [Prolastin C] 1,000 mg IV WEEKLY 06/25/18 [History Confirmed 06/25/18] Lisinopril TAB* [Prinivil TAB 5 MG*] 5 mg PO DAILY 06/25/18 [History Confirmed 06/25/18] Lovastatin (NF) [Mevacor (NF)] 10 mg PO DAILY 06/25/18 [History Confirmed ] PMH/Surg Hx/FS Hx/Imm Hx Cardiovascular History: Reports: Other Cardiovascular Problems/Disorders - carotid stenosis, endarectomy 2006 Respiratory History: Reports: Hx Chronic Obstructive Pulmonary Disease (COPD) Sensory History: Reports: Hx Contacts or Glasses - reading glasses but at home, Hx Vision Problem - reading only, Hx Hearing Aid - bilateral hearing aid Opthamlomology History: Reports: Hx Contacts or Glasses - reading glasses but at home, Hx Vision Problem - reading only - Surgical History Surgery Procedure, Year, and Place: CAROTIDENDERECTOMY RIGHT SIDE. SINUS SURGERY - RIGHT EYE Infectious Disease History: No Infectious Disease History: Denies: History Other Infectious Disease, Traveled Outside the [place] in Last 30 Days - Family History Known Family History: Positive: Hypertension Negative: Diabetes - Social History Alcohol Use: None Substance Use Type: Reports: None Smoking Status (MU): Former Smoker Review of Systems Positive: Fever, Chills Negative: Chest Pain Positive: Shortness Of Breath, Cough - productive, white mucous Positive: Vomiting, Nausea Positive: Other - neck stiffness Positive: Headache All Other Systems Reviewed And Are Negative: Yes Physical Exam - Summary Physical Exam Summary: VITAL SIGNS: Reviewed. GENERAL: Patient is a well-developed and nourished male who is lying comfortable in the stretcher. Patient is not in any acute respiratory distress. HEAD AND FACE: No signs of trauma. No ecchymosis, hematomas or skull depressions. No sinus tenderness. EYES: PERRLA, EOMI x 2, No injected conjunctiva, no nystagmus. EARS: Hearing grossly intact. Ear canals and tympanic membranes are within normal limits. MOUTH: Oropharynx within normal limits. NECK: Supple, trachea is midline, no adenopathy, no JVD, no carotid bruit, no c- spine tenderness, neck with full ROM. CHEST: Symmetric, no tenderness at palpation LUNGS: Decreased breath sounds bilaterally, little movement of air. No wheezing or crackles. CVS: Regular rate and rhythm, S1 and S2 present, no murmurs or gallops appreciated. ABDOMEN: Soft, non-tender. No signs of distention. No rebound no guarding, and no masses palpated. Bowel sounds are normal. EXTREMITIES: FROM in all major joints, no edema, no cyanosis or clubbing. NEURO: Alert and oriented x 3. No acute neurological deficits. Speech is normal and follows commands. SKIN: Dry and warm Triage Information Reviewed: Yes Vital Signs On Initial Exam: Initial Vitals Temp Pulse Resp BP Pulse Ox 98.3 F 119 28 149/61 95 06/25/18 12:39 06/25/18 12:39 06/25/18 12:39 06/25/18 12:39 06/25/18 12:39 Vital Signs Reviewed: Yes Diagnostics - Vital Signs Vital Signs Temp Pulse Resp BP Pulse Ox 06/25/18 12:39 98.3 F 119 28 149/61 95 - Laboratory Result Diagrams: 06/25/18 13:09 06/25/18 13:09 Lab Statement: Any lab studies that have been ordered have been reviewed, and results considered in the medical decision making process. - Radiology CXR Xray Interpretation: No Acute Changes Radiology Interpretation Completed By: Radiologist - No evidence for cardiopulmonary disease. This report was reviewed by ED physician. - CT CTA Thorax/Chest CT Interpretation: No Acute Changes CT Interpretation Completed By: Radiologist - No evidence of pulmonary embolus is noted. Small mediastinal lymph nodes are noted. Minimal atelectas is in the right lung base. This report was reviewed by ED physician. - EKG 1637 Cardiac Rate: Tachycardia - Rate of 110 BPM EKG Rhythm: Sinus Tachycardia ST Segment: Normal - No ST elevation EKG Interpretation: RBBB Re-Evaluation - Re-Evaluation First Eval Re-Evaluation Time: 15:40 Comment: Discussed results of labs and tests. Follow up plan of discharge and visit with PCP within 3 days was discussed. Patient was agreeable with the plan. Course/Dx - Course Assessment/Plan: Patient is a 68 y/o M w/ c/o SOB since this morning. Patient has Hx of COPD but notes exacerbation of SOB this morning. He reports nausea, vomiting this morning and having a productive cough which brings up clear mucus. He denies chest pain but reports ROSA and neck stiffness. Patient reports chills yesterday and possible fever today. He is on 3 L O2 at home. On triage, pain is denied. Allergies and home medications are reviewed. Blood test results without any significant abnormality except for WBCs of 14.1. ABG shows pH of 7.41, PCO2 48, PO2 0101, O2 sat is 99% and 2 L of oxygen. Chest x-ray impression: No evidence for active cardiopulmonary disease. D-dimer was elevated therefore I decided to do a chest CTA. CTA impression: No evidence of pulmonary embolism. After medications the patients symptoms havent significantly improved. The patient reports that he is at baseline. However because the COPD exacerbation I decided to place the patient and antibiotics and discharge the patient home with follow-up with primary care physician. I discussed the plan with the patient and he agrees. I discussed all the findings and test results with the patient. Patient was instructed to return to the emergency room immediately if any of the symptoms return or worsens. Plan of care was discussed with the patient and understands and agrees. All questions were answered at patient satisfaction. There were no further complaints or concerns. Lung exam before discharge: CTA B/L. Good air exchange. No wheezing or crackles heard. CVS: S1 and S2 present. No murmurs appreciated. Patient is alert and oriented x 3. Patient is hemodynamically stable. Patient will be discharged home with follow up PCP in the next 2-3 days - Diagnoses Differential Diagnosis/HQI/PQRI: Positive: Asthma, Bronchitis, CHF, COPD Exacerbation, Pneumonia, Pulmonary Embolism Provider Diagnoses: COPD exacerbation, Bronchitis Discharge - Sign-Out/Discharge Documenting (check all that apply): Patient Departure - discharge - Discharge Plan Condition: Stable Disposition: HOME Prescriptions: Levofloxacin TAB* [Levaquin TAB*] 750 mg PO DAILY #10 tab predniSONE TAB* [Deltasone 20 MG TAB*] 40 mg PO DAILY #10 tab Patient Education Materials: COPD (Chronic Obstructive Pulmonary Disease) (ED) , Pneumonia (ED) Referrals: Ellie Doty [Primary Care Provider] - 3 Days Additional Instructions: Return to ED for any new or worsening symptoms.
[2018-06-25] MEDS ORDERED: NS 0.9% 1000 ML*IV.FLUID IV ONE (12:57)
[2018-06-25] MEDS ORDERED: Albuterol/Ipratropium NEB.SOL* Albuterol 2.5 MG/Ipratropium 0.5 MG 3 ML INH PRN (12:57)
[2018-06-25] MEDS ORDERED: methylPREDNISolone 125 MG* 2 ML VIAL IV ONE (13:00)
[2018-06-25] MEDS ORDERED: cefTRIAXone(*) 1 GM in NS 0.9% 50 ML* 50 ML IVPB ONE (13:00)
[2018-06-25 13:17] LABS: Hematocrit 44 % (42-52); Hemoglobin 14.3 g/dl (14.0-18.0); Mean Corpuscular HGB Conc 33 g/dl (31-36); Mean Corpuscular Hemoglobin 28 pg (27-31); Mean Corpuscular Volume 86 fL (80-94); Mean Platelet Volume 8.9 um3 (7.4-10.4); Platelet Count 194 10^3/ul (150-450); Red Cell Distribution Width 14 % (10.5-15); White Blood Count 14.1 10^3/ul (3.5-10.8)
--- NOTE | 2018-06-25 13:33 | RAD ---
INDICATION: Shortness of breath. COMPARISON: Comparison is made with a prior study from June 17, 2017. TECHNIQUE: Dual-energy PA and lateral views of the chest were obtained. FINDINGS: The heart is within normal limits in size. Mediastinal and hilar contours appear within normal limits. The lungs are underinflated. There appears to be mild bilateral subsegmental atelectasis. The lungs are otherwise clear. No pleural effusion is seen. IMPRESSION: NO EVIDENCE FOR ACTIVE CARDIOPULMONARY DISEASE.
[2018-06-25 13:38] LABS: EGFR Non-African American 81.6 (>60)
[2018-06-25 14:35] LABS: ABS Basophils 0 10^3/ul (0-0.2); ABS Neutrophils 13.9 10^3/ul (1.5-7.7); ABS Neutrophils 9.9 10^3/ul (1.5-7.7); Monocytes % 0 % (0-7)
[2018-06-25 14:48] LABS: INR 0.95 (0.77-1.02)
[2018-06-25] MEDS ORDERED: Iohexol 350* (CONTRAST) 500 ML MDV IV ONE (16:19)
--- NOTE | 2018-06-25 17:13 | RAD ---
Indication: Elevated d-dimer. Contrast: Administered 71.4 ml of OMNIPAQUE 350 mg/ml CTA of the chest performed after IV contrast administration. Coronal and sagittal reconstructed images were obtained. Pulmonary arterial tree is well opacified. There are no filling defects present to suggest pulmonary embolus. Inferior thyroid lobes are unremarkable. There is a pretracheal lymph node measuring up to 5 mm. AP window lymph node measuring up to 5.6 mm. Precarinal lymph node measuring up to 8 mm is noted. No hilar adenopathy is noted. The heart demonstrates no pericardial effusion. The trachea and major bronchi appear patent. Lung malone demonstrate atelectasis in the right base. No alveolar consolidation is noted. The visualized abdominal organs are grossly unremarkable. Atherosclerotic aorta is noted. Degenerative changes of the lower thoracic spine is noted. IMPRESSION: No evidence of pulmonary embolus is noted. Small mediastinal lymph nodes are noted. Minimal atelectasis in the right lung base.
[2018-06-25 17:33] VITALS: BP 118/56
--- NOTE | 2018-06-26 16:54 | PN ---
Progress Note - Progress Note Date of Service: 06/25/18 Note: Call patient's at 9 AM to make aware of positive blood cultures Patient states he feels much better and is denying any symptoms currently Denies any fevers, sweats, chills or weakness Was placed on Levaquin at discharge [facility] Strict return precautions given as discussed gram-negative bacilli often treated with IV antibiotics However, Levaquin may be effective at this time as patient denies any concerns or complaints He understands return precautions and [facility] if not [facility] ED before hand
== END 2018-06-25 17:48 | disposition home or self-care (01) ==
LOC: ED 12:36
DX: J44.1 Chronic obstructive pulmonary disease with (acute) exacerbation (principal); J98.11 Atelectasis; I45.10 Unspecified right bundle-branch block; R00.0 Tachycardia, unspecified; Z99.81 Dependence on supplemental oxygen; Z87.891 Personal history of nicotine dependence; Z88.8 Allergy status to other drugs, medicaments and biological substances
CPT/HCPCS: 36415; 71046; 71275; 80053; 82550; 82803; 83605; 83880; 84145; 84484; 85025; 85379; 85384; 85610; 85652; 85730; 86140; 87040; 87077; 87205; 93005; 96361; 96374; 99284; A9270-GY; J0696; J2930; Q9967

== ENCOUNTER 2024-09-05 15:40 | Inpatient (IN) ==
[2024-09-05] MEDS: Albuterol 2.5mg/3 ml (0.083%) NEB.SOLN INH SCH (15:50)
[2024-09-05 15:57] LABS: ABS Eosinophils 0.4 10^3/uL (0.0-0.5); ABS Lymphocytes 3.4 10^3/uL (1.0-4.8); ABS Monocytes 0.9 10^3/uL (0.0-1.1); ABS Neutrophils 7.1 10^3/uL (1.5-7.6); Eosinophil % 3.2 %; Hematocrit 31.3 % (38-53); Hemoglobin 9.9 g/dL (13.2-16.3); Lymphocyte % 28.9 %; Mean Corpuscular Hemoglobin 28.5 pg (27-33); Mean Corpuscular Hgb Conc 31.7 g/dL (31-36); Mean Corpuscular Volume 89.9 fL (80-97); Mean Platelet Volume 10.1 fL (7.5-11.2); Platelet Count 260 10^3/uL (150-450); Red Blood Count 3.48 10^6/uL (4.06-5.63); Red Cell Distribution Width 14.5 % (12-17); White Blood Count 11.8 10^3/uL (3.6-10.2)
[2024-09-05] MEDS: Albuterol/Ipratropium NEB.SOL (2.5/0.5 MG) 3 ML NEB.SOLN INH ONE (16:00)
[2024-09-05] MEDS: methylPREDNISolone SOD SUCC 125 mg 2 ML VIAL IV ONE (16:01)
[2024-09-05 16:20] LABS: PO2 Arterial 142 mmHg (80-100)
[2024-09-05 16:22] LABS: PCO2 Arterial > 100 mmHg (35-45)
[2024-09-05 16:23] LABS: High Sens Troponin Baseline 19 pg/mL (<20)
[2024-09-05 16:44] LABS: ALT 15 U/L (7-52); AST 45 U/L (13-39); Albumin 4.1 g/dL (3.2-5.2); Albumin/Globulin Ratio 1.4 (1-3); Alkaline Phosphatase 108 U/L (35-149); Anion Gap 5 mmol/L (2-16); Blood Urea Nitrogen 21 mg/dL (6-24); C Reactive Protein 1.37 mg/L (<8.01); CO2 Carbon Dioxide 43 mmol/L (22-32); Calcium 9.2 mg/dL (8.6-10.3); Chloride 95 mmol/L (101-111); Creatinine, Serum 1.35 mg/dL (0.67-1.17); Globulin 2.9 g/dL (2-4); Glucose 234 mg/dL (70-100); Potassium 4.1 mmol/L (3.5-5.0); Sodium 143 mmol/L (135-145); Total Bilirubin 0.5 mg/dL (0.2-1.0); eGFR CKD-EPI 54.8 (>60)
[2024-09-05 16:50] LABS: Activated Partial Thrombo Time 30.2 seconds (26.0-38.0); INR 0.96 (0.85-1.14)
[2024-09-05 17:19] LABS: High Sensitivity Troponin 1 Hr 27 pg/mL (<20)
[2024-09-05] MEDS ORDERED: Albuterol HFA INHALER 8 gm MDI INH PRN (20:20)
[2024-09-05 22:36] LABS: High Sensitivity Troponin 1 Hr 412 pg/mL (<20)
[2024-09-06 04:35] LABS: ABS Lymphocytes 0.2 10^3/uL (1.0-4.8); ABS Monocytes 0.2 10^3/uL (0.0-1.1); ABS Neutrophils 5.8 10^3/uL (1.5-7.6); Hemoglobin 8.4 g/dL (13.2-16.3); Lymphocyte % 3.5 %; Mean Corpuscular Hemoglobin 28.4 pg (27-33); Mean Corpuscular Hgb Conc 32.2 g/dL (31-36); Mean Corpuscular Volume 88.2 fL (80-97); Mean Platelet Volume 10.2 fL (7.5-11.2); Platelet Count 162 10^3/uL (150-450); Red Blood Count 2.95 10^6/uL (4.06-5.63); Red Cell Distribution Width 14.5 % (12-17); White Blood Count 6.2 10^3/uL (3.6-10.2)
[2024-09-06 05:23] LABS: Calcium 9.1 mg/dL (8.6-10.3); Creatinine, Serum 1.45 mg/dL (0.67-1.17); Magnesium 2.1 mg/dL (1.9-2.7); Potassium 4.8 mmol/L (3.5-5.0); eGFR CKD-EPI 50.3 (>60)
[2024-09-06 05:51] LABS: % Iron Saturation 18 % (15-55); .Transferrin 259 mg/dL (203-362); Iron 67 ug/dL (50-212); Total Iron Binding Capacity 363 mcg/dL (250-450); Unsaturated Iron Binding 296 ug/dL
[2024-09-06] MEDS ORDERED: Heparin 5000 UNITS/ML 1 mL VIAL IV SCH (06:00)
[2024-09-06] MEDS ORDERED: Iodixanol 320 (CONTRAST) 100 ML SDV IV ONE (06:11)
[2024-09-06 06:14] LABS: Ferritin 50.6 ng/mL (24-336)
[2024-09-06 06:18] LABS: Folate > 20.00 ng/mL (5.90-24.80); Vitamin B12 598 pg/mL (180-914)
[2024-09-06 08:11] LABS: Hematocrit 24.2 % (38-53); Hemoglobin 7.8 g/dL (13.2-16.3)
[2024-09-06] MEDS: Tiotropium Brom/Olodaterol MDI (ACUTE) INH SCH (08:14)
[2024-09-06] MEDS: Heparin DRIP 25,000 UNITS BAG 25,000 UNITS/250 ML BAG IV SCH (08:53)
[2024-09-06] MEDS ORDERED: Olodaterol Inhaler MDI INH SCH (09:00)
[2024-09-06 09:26] LABS: High Sensitivity Troponin 1 Hr 696 pg/mL (<20)
[2024-09-06] MEDS: Lactated Ringers 1000 ml BAG 1,000 ML IV ONE ×2 (09:38→22:01)
[2024-09-06] MEDS: Aspirin EC 81 mg TAB.EC (enteric coated) PO SCH (09:51)
[2024-09-06] MEDS: Sulfur Hexaflouride MICROSPHR 25 MG VIAL IV PRN (10:20)
[2024-09-06 10:42] LABS: PCO2 Arterial 65 mmHg (35-45); PO2 Arterial 93 mmHg (80-100)
[2024-09-06] MEDS: Multivitamins/Minerals TAB PO SCH (11:58)
[2024-09-06 14:25] LABS: ABS Lymphocytes 0.5 10^3/uL (1.0-4.8); ABS Monocytes 0.8 10^3/uL (0.0-1.1); ABS Neutrophils 10.4 10^3/uL (1.5-7.6); Hematocrit 24.5 % (38-53); Hemoglobin 7.9 g/dL (13.2-16.3); Mean Corpuscular Hemoglobin 28.3 pg (27-33); Mean Corpuscular Hgb Conc 32.2 g/dL (31-36); Platelet Count 162 10^3/uL (150-450); Red Blood Count 2.79 10^6/uL (4.06-5.63); Red Cell Distribution Width 14.5 % (12-17); White Blood Count 11.6 10^3/uL (3.6-10.2)
[2024-09-06 19:51] LABS: ABS Lymphocytes 0.2 10^3/uL (1.0-4.8); ABS Monocytes 0.4 10^3/uL (0.0-1.1); ABS Neutrophils 11.8 10^3/uL (1.5-7.6); Hematocrit 29.4 % (38-53); Hemoglobin 9.4 g/dL (13.2-16.3); Lymphocyte % 1.9 %; Mean Corpuscular Hemoglobin 27.8 pg (27-33); Mean Corpuscular Hgb Conc 31.8 g/dL (31-36); Mean Corpuscular Volume 87.5 fL (80-97); Mean Platelet Volume 10.1 fL (7.5-11.2); Platelet Count 163 10^3/uL (150-450); Red Blood Count 3.36 10^6/uL (4.06-5.63); Red Cell Distribution Width 14.5 % (12-17); White Blood Count 12.5 10^3/uL (3.6-10.2)
[2024-09-06 20:42] LABS: Calcium 9.1 mg/dL (8.6-10.3); Creatinine, Serum 1.4 mg/dL (0.67-1.17); Magnesium 2.2 mg/dL (1.9-2.7); Phosphorus 4.1 mg/dL (2.5-5.0); eGFR CKD-EPI 52.4 (>60)
[2024-09-06] MEDS ORDERED: Enoxaparin 40 MG/0.4 ML SYR SUBCUT SCH (21:00)
[2024-09-07 06:47] LABS: ABS Lymphocytes 0.3 10^3/uL (1.0-4.8); ABS Monocytes 0.9 10^3/uL (0.0-1.1); ABS Neutrophils 11.5 10^3/uL (1.5-7.6); Hematocrit 27.5 % (38-53); Hemoglobin 9.1 g/dL (13.2-16.3); Lymphocyte % 2.6 %; Mean Corpuscular Hemoglobin 28.9 pg (27-33); Mean Corpuscular Hgb Conc 33.2 g/dL (31-36); Mean Corpuscular Volume 87.1 fL (80-97); Mean Platelet Volume 10.3 fL (7.5-11.2); Platelet Count 146 10^3/uL (150-450); Red Blood Count 3.16 10^6/uL (4.06-5.63); Red Cell Distribution Width 14.9 % (12-17); White Blood Count 12.8 10^3/uL (3.6-10.2)
[2024-09-07 07:33] LABS: Calcium 8.6 mg/dL (8.6-10.3); Creatinine, Serum 1.13 mg/dL (0.67-1.17); Potassium 4.7 mmol/L (3.5-5.0); eGFR CKD-EPI 67.8 (>60)
[2024-09-07] MEDS: Enoxaparin 40 MG/0.4 ML SYR SUBCUT SCH (22:07)
[2024-09-08 06:41] LABS: ABS Monocytes 1.2 10^3/uL (0.0-1.1); ABS Neutrophils 10.7 10^3/uL (1.5-7.6); Eosinophil % 0.1 %; Hemoglobin 10.7 g/dL (13.2-16.3); Lymphocyte % 7.5 %; Mean Corpuscular Hemoglobin 28.8 pg (27-33); Mean Corpuscular Hgb Conc 32.5 g/dL (31-36); Mean Corpuscular Volume 88.5 fL (80-97); Mean Platelet Volume 10.4 fL (7.5-11.2); Platelet Count 181 10^3/uL (150-450); Red Blood Count 3.73 10^6/uL (4.06-5.63); Red Cell Distribution Width 14.8 % (12-17); White Blood Count 12.9 10^3/uL (3.6-10.2)
[2024-09-08 06:51] LABS: Calcium 9.1 mg/dL (8.6-10.3); Creatinine, Serum 1.04 mg/dL (0.67-1.17); Phosphorus 3.7 mg/dL (2.5-5.0); Potassium 4.5 mmol/L (3.5-5.0); eGFR CKD-EPI 74.9 (>60)
[2024-09-08 09:36] VITALS: BP 148/55
== END 2024-09-08 14:10 | disposition home or self-care (01) | DRG 199 ==
LOC: ED 15:40 → EDHOLD 15:40 → SUATTDRO 19:11 → EDHOLD 09-06 09:40 → MED 09-06 16:01
PROVIDERS: ADMIT Internal Medicine; ATTEND Internal Medicine